=== PATIENT | male | born 1955 | race Caucasian/White ===

== ENCOUNTER → 2018-06-15 | Outpatient (REF) | payer OTHER ==
[2018-06-15 17:23] LABS: ALBUMIN 4.7 GM/DL (3.2-5.2); ALT/SGPT 41 U/L (12-78); BILIRUBIN,TOTAL 0.5 MG/DL (0.2-1.0); BLOOD UREA NITROGEN 21 MG/DL (7-18); CALCIUM LEVEL 9.8 MG/DL (8.8-10.2); CARBON DIOXIDE LEVEL 29 MEQ/L (21-32); CHLORIDE LEVEL 105 MEQ/L (98-107); CHOLESTEROL LEVEL 192 MG/DL (<200); CREATININE FOR GFR 1.24 MG/DL (0.70-1.30); GLOMERULAR FILTRATION RATE > 60.0 (>49); GLUCOSE, FASTING 112 MG/DL (70-100); HDL CHOLESTEROL 48 MG/DL (>40); LDL CHOLESTEROL 104 MG/DL (<100); NON-HDL-C 144 MG/DL; POTASSIUM SERUM 4.8 MEQ/L (3.5-5.1); SODIUM LEVEL 141 MEQ/L (136-145); TOTAL PROTEIN 7.6 GM/DL (6.4-8.2); TRIGLYCERIDES LEVEL 199 MG/DL (<150)
== END ==
LOC: M SFHCCLAY 09:45
PROVIDERS: ATTEND Family Medicine
DX: I10 Essential (primary) hypertension (principal); E78.2 Mixed hyperlipidemia

== ENCOUNTER → 2019-10-31 | Outpatient (CLI) | payer OTHER ==
[~2019-10-31] MED LIST: ATOR40TA75 PO; CHLO25TA PO; LISI-538 PO; MAPA500C PO; MELA5TAB21 PO; PANT40TA29 PO; TOPR100T PO
== END ==
LOC: M LABSMTC 09:21
PROVIDERS: ATTEND Anesthesiology
DX: Z01.812 Encounter for preprocedural laboratory examination (principal); Z20.828 Contact with and (suspected) exposure to other viral communicable diseases
CPT/HCPCS: C9803; U0003

== ENCOUNTER 2019-11-05 05:58 | Day surgery (SDC) | payer OTHER ==
[~2019-11-05] VITALS: Ht 172.7 cm; Wt 71.7 kg
[2019-11-05] MEDS ORDERED: LIDOCAINE 2% 100MG/5ML SDV (FOR ANES.) As Ordered ONE (06:55)
[2019-11-05] MEDS ORDERED: propofoL 200 MG/20 ML VIAL As Ordered ONE ×2 (06:55→07:42)
[2019-11-05] MEDS ORDERED: NS 1,000 ML IV SCH (07:00)
[2019-11-05] MEDS ORDERED: LR 1,000 ML IV SCH (07:00)
[2019-11-05] MEDS ORDERED: MIDAZOLAM INJ 2MG/2ML VIAL (J2250 PER 1MG) As Ordered ONE (07:33)
[2019-11-05] MEDS ORDERED: ALBUTEROL 6.7GM INHALER **FOR ANES. CART/OMNICELL ONLY As Ordered ONE (08:02)
[2019-11-05 10:35] VITALS: BP 131/79
[2019-11-05] MEDS ORDERED: LIQUID POLIBAR PLUS 105% w/v 1900ML BTL As Ordered ONE (10:36)
--- NOTE | 2019-11-25 09:22 | REP ---
BARIUM ENEMA SINGLE CONTRAST The procedure was performed under the direct supervision of Dr. Mueller. The images were reviewed with Dr. Mueller. FINDINGS: The entomology professor film shows no organomegaly or pathological masses. The intestinal gas pattern is nonspecific. There is a colostomy overlying the left abdomen. A 14-[place] Trejo catheter was inserted into the stomach with some difficulty. The contrast did not readily fill the colon. Gentle pressure had to be applied to the tubing to advance the contrast. Only a small amount of contrast was able to be instilled. Images demonstrate marked mucosal irregularity and narrowing. There is opacification of a small segment of colon near the ostomy. Despite multiple attempts, the remainder of the colon was unable to be filled. IMPRESSION: A 14-[place] Island[place] Trejo catheter was inserted with some difficulty. Only a small amount of contrast was able to be instilled. Images demonstrate marked mucosal irregularity and narrowing. There is opacification of a small segment of colon near the ostomy. Despite multiple attempts, no more contrast could be instilled into the colon. 1.3 minutes of fluoroscopy time was utilized for this procedure. PATRIZIA
--- NOTE | 2019-12-25 21:43 | ROOR ---
Patient Name: Bijan Jaramillo Procedure Date: 11/05/2019 7:17 AM Date of : 1955 Age: 63 Room: [facility] Gender: Male Note Status: Finalized Procedure: Colonoscopy Indications: Post surgical follow-up, Preoperative assessment, Patient had emergency sigmoid colectomy with colostomy in May for perforation. Now being evaluated for colostomy takedown. Providers: Alden Austin MD Referring MD: VERONICA COTTON DO Requesting Provider: Medicines: Monitored Anesthesia Care Complications: No immediate complications. Procedure: Pre-Anesthesia Assessment: - Prior to the procedure, a History and Physical was performed, and patient medications and allergies were reviewed. The patient is competent. The risks and benefits of the procedure and the sedation options and risks were discussed with the patient. All questions were answered and informed consent was obtained. Patient identification and proposed procedure were verified by the physician, the nurse and the anesthesiologist in the procedure room. Mental Status Examination: alert and oriented. Airway Examination: normal oropharyngeal airway and neck mobility. ASA Grade Assessment: II - A patient with mild systemic disease. After reviewing the risks and benefits, the patient was deemed in satisfactory condition to undergo the procedure. The anesthesia plan was to use monitored anesthesia care (MAC). Immediately prior to administration of medications, the patient was re-assessed for adequacy to receive sedatives. The heart rate, respiratory rate, oxygen saturations, blood pressure, adequacy of pulmonary ventilation, and response to care were monitored throughout the procedure. The physical status of the patient was re-assessed after the procedure. The Colonoscope was introduced through the anus and advanced to the sigmoid colon for evaluation. This was the intended extent. The colostomy was markedly stenotic and it was impossible to insert the scope so this portion of the scope was aborted. Findings: The perianal and digital rectal examinations were normal. A small amount of stool was found in the rectum, making visualization difficult. Lavage of the area was performed using a moderate amount of sterile water, resulting in clearance with good visualization. A benign obstructing stenosis was found at 25 cm proximal to the anus and was non-traversed. This marked the closed end of his rectosigmoid. There was evidence of a markedly strictured end colostomy in the descending colon. This was characterized by severe stenosis. This portion of the colonoscopy was aborted. Impression: - The procedure was aborted due to abnormal anatomy. - Stool in the rectum. - Stricture at 25 cm proximal to the anus. 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 - No specimens collected. Recommendation: - Discharge patient to home. - Resume previous diet. - Perform a single contrast barium enema at appointment to be scheduled. Alden Austin MD Alden Austin MD 12/25/2019 9:42:21 PM Electronically signed by Alden Austin MD Number of Addenda: 0 Note Initiated On: 11/05/2019 7:17 AM Estimated Blood Loss: Estimated blood loss: none.
== END 2019-11-05 10:39 | disposition home or self-care (01) ==
LOC: M OPP 05:58
PROVIDERS: ATTEND Surgery
DX: Z01.818 Encounter for other preprocedural examination (principal); K56.699 Other intestinal obstruction unspecified as to partial versus complete obstruction; Z09 Encounter for follow-up examination after completed treatment for conditions other than malignant neoplasm; Z53.8 Procedure and treatment not carried out for other reasons
CPT/HCPCS: 45378; 74270; J2250

== ENCOUNTER → 2019-12-01 | Outpatient (CLI) | payer OTHER ==
[~2019-12-01] MED LIST changes: +GASTROGRAFIN SOLUTION 30ML (Q9963) As Ordered ONE; +ISOVUE-370 76% 100ML VIAL As Ordered ONE
--- NOTE | 2019-12-06 09:16 | REP ---
CT ABDOMEN AND PELVIS WITH INTRAVENOUS (IV) AND ORAL CONTRAST HISTORY: Colostomy malfunction. Large intestinal diverticulitis with perforation and abscess without bleeding. CT CONTRAST DOSE: 100 mL of intravenous Isovue-[address] STUDY: None. 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 The lung bases are clear on axial CT images except for some linear plate-like atelectasis and/or fibrosis in the lingula at the left lung base. No pleural effusion is seen. The liver and the spleen are normal in size and homogeneous in texture. No abnormality noted in the gallbladder or pancreas. Normal adrenal glands are seen bilaterally. There is a cyst in the upper pole of the left kidney, which measures 13 mm in diameter. There is another cyst in the anterior cortex of the left mid kidney measuring 11 mm and a third lower pole cyst is seen in the left kidney measuring 21 mm. There is mild cortical scarring in the right kidney. No hydronephrosis is seen. No retroperitoneal mass or adenopathy is observed. The stomach is somewhat distended with ingested contrast. The small bowel loops are unremarkable in caliber. Left lower quadrant enterostomy is seen. There is mural thickening in the descending colon just above the colostomy, question enterocolitis. There are dystrophic calcifications just deep to the abdominal wall in the left lower quadrant at the level of the enterostomy. These may be dystrophic. No colonic distention is seen. No free fluid is noted. A normal appendix is seen. Urinary bladder, prostate, and seminal vesicles are unremarkable. IMPRESSION: Mural thickening in the distal descending colon just above the left lower quadrant colostomy question enterocolitis. There is an area of dystrophic calcification in the left lower quadrant deep to the colostomy site. No evidence of obstruction. Small left renal cyst. MTDD
== END ==
LOC: M RAD 14:23
PROVIDERS: ATTEND Surgery
DX: K57.92 Diverticulitis of intestine, part unspecified, without perforation or abscess without bleeding (principal); K94.03 Colostomy malfunction
CPT/HCPCS: 74177; Q9963; Q9967

== ENCOUNTER → 2019-12-27 | Outpatient (REF) | payer OTHER ==
[~2019-12-27] MED LIST changes: -GASTROGRAFIN SOLUTION 30ML (Q9963) As Ordered ONE; -ISOVUE-370 76% 100ML VIAL As Ordered ONE
[2019-12-27 17:11] LABS: BASO % 0.2 % (0.0-1.0); EOS % 0.1 % (0.0-3.0); HEMATOCRIT 45.1 % (42.0-52.0); HEMOGLOBIN 14.2 g/dl (13.5-17.5); LYMPH # 2.9 10^3/uL (1.5-5.0); LYMPH % 29.6 % (24.0-44.0); MEAN CORPUSCULAR HEMOGLOBIN 25.8 pg (27.0-33.0); MEAN CORPUSCULAR HGB CONC 31.5 g/dl (32.0-36.5); MONO # 0.4 10^3/uL (0.0-0.8); MONO % 4.3 % (0.0-5.0); NEUTROPHILS # 6.3 10^3/uL (1.5-8.5); NEUTROPHILS % 64.9 % (36.0-66.0); PLATELET COUNT, AUTOMATED 344 10^3/uL (150-450); WHITE BLOOD COUNT 9.7 10^3/uL (4.0-10.0)
[2019-12-27 18:25] LABS: ALBUMIN 4.6 GM/DL (3.2-5.2); ALT/SGPT 24 U/L (12-78); BILIRUBIN,TOTAL 0.5 MG/DL (0.2-1.0); BLOOD UREA NITROGEN 13 MG/DL (7-18); CALCIUM LEVEL 9.7 MG/DL (8.8-10.2); CARBON DIOXIDE LEVEL 31 MEQ/L (21-32); CHLORIDE LEVEL 97 MEQ/L (98-107); CHOLESTEROL LEVEL 137 MG/DL (<200); CHOLESTEROL RISK RATIO 2.584 (<5); CREATININE FOR GFR 1.09 MG/DL (0.70-1.30); GLOMERULAR FILTRATION RATE > 60.0 (>49); GLUCOSE, FASTING 110 MG/DL (70-100); HDL CHOLESTEROL 53 MG/DL (>40); LDL CHOLESTEROL 58 MG/DL (<100); MAGNESIUM LEVEL 1.8 MG/DL (1.8-2.4); NON-HDL-C 84 MG/DL; POTASSIUM SERUM 4.2 MEQ/L (3.5-5.1); SODIUM LEVEL 133 MEQ/L (136-145); THYROID STIMULATING HORMONE 0.889 uIU/ML (0.358-3.740); TOTAL PROTEIN 7.9 GM/DL (6.4-8.2); TRIGLYCERIDES LEVEL 130 MG/DL (<150)
== END ==
LOC: M SFHCCLAY 10:01
PROVIDERS: ATTEND Family Medicine
DX: I10 Essential (primary) hypertension (principal); E78.2 Mixed hyperlipidemia; K21.9 Gastro-esophageal reflux disease without esophagitis; R63.4 Abnormal weight loss

== ENCOUNTER → 2020-01-22 | Outpatient (CLI) | payer OTHER ==
[~2020-01-22] MED LIST changes: +OXYC-517 PO
== END ==
LOC: M LABSMTC 09:26
PROVIDERS: ATTEND Surgery
DX: Z01.818 Encounter for other preprocedural examination (principal)

== ENCOUNTER 2020-01-25 09:05 | Inpatient (IN) | payer OTHER ==
--- NOTE | 2020-01-24 20:16 | HPE ---
"HISTORY AND PHYSICAL DATE OF ADMISSION: 01/25/2020 ADMITTING DIAGNOSIS: Colostomy status post sigmoid colon perforation. HISTORY OF PRESENT ILLNESS: The patient is a 64-year-old man who on 05/26/2019 underwent surgery at [facility] for a sigmoid colon perforation. He had initially presented at [facility] with abdominal pain and was transferred to [facility]. He underwent surgery with a sigmoid resection and an end descending colostomy. He was apparently in shock at the time of the surgery requiring pressor support. He was hospitalized for 9 days. He ultimately was discharged home. He apparently did well and was subsequently referred to me for consideration of colostomy closure. I first saw him on 10/25/2019. He was scheduled for a colonoscopy to evaluate his rectal stump and remaining colon. At the colonoscopy, it was possible to examine the rectum and he was found to have approximately 25 cm of rectosigmoid. Attempts to intubate his colostomy revealed that he had a marked stricture at the end of his colostomy and it was impossible to advance the scope. He was scheduled for a barium enema and in the x-ray department it was possible for the radiologist to insert a small catheter but only a minimal amount of contrast could be injected. He reports that the ostomy is functioning adequately though he does have some crampy pains before passage of material. Because of the stricture, he underwent a CT scan of the abdomen and pelvis on 12/01/2019. This revealed some mural thickening in the distal descending colon just above the colostomy. There was also some dystrophic calcifications in the left lower quadrant deep to the colostomy site. On my review, I thought it might be that these reported calcifications represented some residual contrast from the attempted barium enema. I did not think that the findings suggested cancer. He is now being admitted on the morning of 01/25/2020 to undergo a robotic assisted laparoscopic takedown of his colostomy with a coloproctostomy. He is to perform a full mechanical and antibiotic bowel preparation at home on 01/24/2020 using Suprep with Neomycin and Flagyl. ALLERGIES: The patient reports no known drug allergies. MEDICATIONS: Include: - atorvastatin 40 mg by mouth daily - chlorthalidone 25 mg by mouth daily - lisinopril 20 mg by mouth daily - melatonin 10 mg one tablet by mouth at bedtime - metoprolol succinate ER 100 mg by mouth daily - Protonix 40 mg by mouth daily - Tylenol as needed for pain MEDICAL HISTORY: Significant for high cholesterol. He has a history of hypertension. He has gastroesophageal reflux disease. He reports that he has had some borderline blood sugars but has not been diagnosed as diabetic.| SURGICAL HISTORY: Significant for surgery on his hand in 2006 and 2007. He had a transurethral resection of a bladder tumor in 2013 for bladder cancer. He has had several colonoscopies in the past but the most recent had been 10 years ago. On 05/26/2019, he underwent a laparotomy with a sigmoid resection and end colostomy. FAMILY HISTORY: Patient's father is from heart disease and his mother is with diabetes. SOCIAL HISTORY: Patient is . He denies any smoking or alcohol use. REVIEW OF SYSTEMS: Reviews no history of fevers or chills and his weight has been stable. He denies any history of seizures or stroke. He has no chest pain or palpitations. He denies any chronic cough, wheezing, or sputum production. He has had no rectal bleeding. There is no family history of colon cancer. He denies any dysuria or hematuria currently. There are no significant bone or joint issues and he has no history of deep venous thrombosis (DVT) or pulmonary embolus. PHYSICAL EXAMINATION: Reveals a pleasant man in no acute distress. At his most recent office visit, his height was 68 inches with a weight of 73 kg, giving him a body mass index (BMI) of 24. He is alert, oriented, and cooperative. Skin is warm and dry. Sclerae are anicteric. Mucous membranes are moist. The neck is supple without mass or bruit. Heart exam shows a regular rate and rhythm. Lungs are clear to auscultation bilaterally. The abdomen is thin and flat. He has a well-healed midline abdominal scar. The ostomy is present on the left at about the mid abdomen. There does appear to be a stenotic or scarred area at the end of the colostomy. Digital rectal exam was performed at the time of his colonoscopy and was not repeated. Extremities are without edema and he has intact peripheral pulses. IMPRESSION: 1. End descending colostomy status post sigmoid resection for perforation. 2. Hypertension. 3. Hypercholesterolemia. 4. Gastroesophageal reflux disease. 5. Borderline blood sugars. PLAN: The patient is being admitted on 01/25/2020 to undergo a robotic assisted takedown of his colostomy and coloproctostomy. I anticipate that we may encounter some significant intraabdominal scarring because of his diffuse peritonitis at the time of his resection. I anticipate that we will need to resect a portion of the end of the sigmoid. Given the finding of a stenosis at the end of the stoma with thickening by CT scan, I suspect we will also need to resect a portion of the descending colon. This means we will also need to mobilize his splenic flexure to try to achieve adequate length for an anastomosis. The patient has been counseled regarding the surgery. Risks of the procedure include but are not limited to bleeding, infection, scarring, adverse drug reaction, need for further surgery, injury of internal organ, anastomotic leak, and hernia. He desires to proceed with the surgery as I have outlined it. He will perform his bowel prep at home the day before surgery. He will receive intravenous antibiotics on the morning of the procedure. I have advised him to anticipate an approximately 3 day hospital stay if all goes well. PATRIZIA"
[~2020-01-25] VITALS: Ht 172.7 cm; Wt 70.8 kg
[~2020-01-25 09:05] MED LIST changes: +ALVIMOPAN 12 MG CAPSULE (ENTEREG) PO ONE; +HYDROmorphone HCL 2 MG/ML 1ML VIAL (J1170) As Ordered ONE; +LIDOCAINE 2% 100MG/5ML SDV (FOR ANES.) As Ordered ONE; +LR 1,000 ML IV ONE; +MIDAZOLAM INJ 2MG/2ML VIAL (J2250 PER 1MG) As Ordered ONE; +ONDANSETRON 4MG/2ML VIAL As Ordered ONE; -OXYC-517 PO; +ROCURONIUM BROMIDE 50 MG/5 ML VIAL As Ordered ONE; +SUGAMMADEX SODIUM 500 MG/5 ML VIAL (BRIDION) As Ordered ONE; +cefoTEtan DISODIUM 2 GM in D5W MINI-BAG PLUS 50 ML IV ONE; +dexameTHASONE 4 MG/ML 1ML VIAL (J1100 PER 1MG) As Ordered ONE; +fentaNYL 100 MCG/2 ML INJECTION (J3010) As Ordered ONE; +propofoL 200 MG/20 ML VIAL As Ordered ONE
[2020-01-25] MEDS ORDERED: BUPIVACAINE HCL 0.25% 30ML VIAL As Ordered ONE (09:32)
[2020-01-25] MEDS ORDERED: cefoTEtan DISODIUM 2 GM in D5W MINI-BAG PLUS 50 ML IV ONE ×2 (10:00→22:30)
[2020-01-25] MEDS ORDERED: ACETAMINOPHEN 1000MG 100ML IV BTL (OFIRMEV) (J0131 PER 10MG) As Ordered ONE (10:38)
[2020-01-25] MEDS ORDERED: ePHEDrine SULFATE 25 MG/5 ML(5MG/ML) SYRINGE As Ordered ONE ×2 (10:39→16:08)
[2020-01-25] MEDS ORDERED: ROCURONIUM BROMIDE 50 MG/5 ML VIAL As Ordered ONE ×4 (10:44→15:16)
[2020-01-25] MEDS ORDERED: fentaNYL 100 MCG/2 ML INJECTION (J3010) As Ordered ONE (16:17)
[2020-01-25] MEDS ORDERED: propofoL 200 MG/20 ML VIAL As Ordered ONE (16:17)
[2020-01-25] MEDS ORDERED: ONDANSETRON 4MG/2ML VIAL IV PRN ×2 (17:00→18:45)
[2020-01-25] MEDS ORDERED: oxyCODONE 5MG TAB PO PRN (17:00)
[2020-01-25] MEDS ORDERED: LR 1,000 ML IV SCH (17:00)
[2020-01-25] MEDS: fentaNYL 100 MCG/2 ML INJECTION (J3010) IV PRN ×3 (17:04→17:24)
[2020-01-25 18:00] VITALS: BP 142/78
[2020-01-25 18:35] VITALS: BP 138/76
[2020-01-25] MEDS ORDERED: ACETAMINOPHEN TAB 650MG DOSE (2X325MG) PO PRN (18:45)
[2020-01-25] MEDS ORDERED: METOCLOPRAMIDE INJ 10MG/2ML VIAL (J2765 PER 1) IV PRN (18:45)
[2020-01-25] MEDS ORDERED: MORPHINE 2 MG/ML 1ML VIAL (J2270) IV PRN (18:45)
[2020-01-25 19:30] VITALS: BP 134/86
[2020-01-25] MEDS: KETOROLAC 30 MG/ML 1ML VIAL IV SCH (19:51)
[2020-01-25 20:30] VITALS: BP 135/83
[2020-01-25] MEDS: LR 1,000 ML IV SCH ×2 (20:45→22:50)
[2020-01-25 22:30] VITALS: BP 133/75
[2020-01-26 02:00] VITALS: BP 133/77
[2020-01-26] MEDS: KETOROLAC 30 MG/ML 1ML VIAL IV SCH ×4 (02:11→21:05)
[2020-01-26 06:00] VITALS: BP 134/77
[2020-01-26] MEDS: oxyCODONE 5MG TAB PO PRN ×3 (06:20→16:35)
[2020-01-26] MEDS: lisinopriL 20 MG TAB PO SCH (07:52)
[2020-01-26] MEDS: ATORVASTATIN 20 MG TAB PO SCH (07:52)
[2020-01-26] MEDS: METOPROLOL SUCC (TopROL XL) 100MG *XL* TAB PO SCH (07:53)
[2020-01-26] MEDS: CHLORTHALIDONE 25 MG TAB PO SCH (07:53)
[2020-01-26] MEDS: ENOXAPARIN 40MG/0.4ML SYRINGE (J1650 PER 10MG) SC SCH (07:53)
[2020-01-26] MEDS: PANTOPRAZOLE 40MG TAB (PROTONIX) PO SCH (07:53)
[2020-01-26 08:14] LABS: BASO % 0.2 % (0.0-1.0); EOS % 0.1 % (0.0-3.0); HEMATOCRIT 38.9 % (42.0-52.0); HEMOGLOBIN 12.2 g/dl (13.5-17.5); LYMPH # 2.5 10^3/uL (1.5-5.0); LYMPH % 15.9 % (24.0-44.0); MEAN CORPUSCULAR HEMOGLOBIN 26.6 pg (27.0-33.0); MEAN CORPUSCULAR HGB CONC 31.4 g/dl (32.0-36.5); MEAN CORPUSCULAR VOLUME 84.7 fl (80.0-96.0); MONO # 0.7 10^3/uL (0.0-0.8); MONO % 4.2 % (0.0-5.0); NEUTROPHILS # 12.7 10^3/uL (1.5-8.5); PLATELET COUNT, AUTOMATED 277 10^3/uL (150-450); RED BLOOD COUNT 4.59 10^6/uL (4.30-6.10)
[2020-01-26 08:30] LABS: CALCIUM LEVEL 8.5 MG/DL (8.8-10.2); CREATININE FOR GFR 1.37 MG/DL (0.70-1.30); GLOMERULAR FILTRATION RATE 55.7 (>49); POTASSIUM SERUM 3.6 MEQ/L (3.5-5.1)
[2020-01-26 10:11] VITALS: BP 109/65
[2020-01-26 15:09] VITALS: BP 131/83
[2020-01-26 20:00] VITALS: BP 120/71
[2020-01-27] MEDS: oxyCODONE 5MG TAB PO PRN ×6 (00:37→23:06)
[2020-01-27] MEDS: KETOROLAC 30 MG/ML 1ML VIAL IV SCH ×2 (02:17→08:00)
[2020-01-27 06:00] VITALS: BP 125/78
[2020-01-27] MEDS: CHLORTHALIDONE 25 MG TAB PO SCH (08:33)
[2020-01-27] MEDS: PANTOPRAZOLE 40MG TAB (PROTONIX) PO SCH (08:33)
[2020-01-27] MEDS: ATORVASTATIN 20 MG TAB PO SCH (08:33)
[2020-01-27] MEDS: ENOXAPARIN 40MG/0.4ML SYRINGE (J1650 PER 10MG) SC SCH (08:33)
[2020-01-27] MEDS: lisinopriL 20 MG TAB PO SCH (08:33)
[2020-01-27] MEDS: METOPROLOL SUCC (TopROL XL) 100MG *XL* TAB PO SCH (08:33)
[2020-01-27] MEDS ORDERED: IBUPROFEN 600MG TAB PO PRN (09:00)
[2020-01-27 10:00] VITALS: BP 110/63
--- NOTE | 2020-01-27 11:06 | RO ---
OPERATIVE NOTE DATE OF OPERATION: 01/25/2020 PREOPERATIVE DIAGNOSIS: Colostomy status post sigmoid resection for perforation, for closure POSTOPERATIVE DIAGNOSES: Colostomy for closure, colostomy stenosis with peristomal inflammation, extensive adhesions, and midline incisional hernia. PROCEDURES PERFORMED: Robotic-assisted rectosigmoid resection, extensive lysis of adhesions, take down of colostomy with mobilization of splenic flexure, and coloproctostomy. Flexible sigmoidoscopy for inspection of anastomosis. SURGEON: Alden Austin MD RECAPPER: Earl Garcia MD whose assistance was essential for performing the colorectal anastomosis. SECOND SALON SUPERVISOR: HARINDER Arrington. ANESTHESIA: General. INDICATIONS FOR PROCEDURE: The patient is a 64-year-old man who, on May 26, 2019, had undergone surgery in [place] for a perforated sigmoid diverticulum with diffuse peritonitis. He had a sigmoid colectomy and an end colostomy in the left mid abdomen. He was recently referred to me to consider closure of his colostomy. He was found to have a significant stenosis of his ostomy which precluded endoscopic exam. The patient is now for robotic-assisted take down of his colostomy with resection of any residual sigmoid and coloproctostomy. OPERATIVE PROCEDURE: The patient was brought to the operating room and placed on the table in a supine position. He was placed under general endotracheal anesthesia. TEDs and sequentials were utilized. Trejo catheter was placed. He was moved into a low lithotomy position with the lower extremities in padded leg holders. His ostomy appliance was removed and he was noted to have a very small opening without any exposed mucosa at his stoma. This was perhaps 6-8 mm maximally and very irregular. This area was closed with two sutures of 2-0 silk. The abdomen was then prepped and draped in sterile fashion. A small OpSite was placed over the ostomy. 0.25% Marcaine was infiltrated at the trocar sites as needed. A short transverse incision was made in the left upper quadrant and a Veress needle was inserted. After a positive hanging drop test, the abdomen was insufflated but pressures micki rapidly and the Veress needle was removed. I then moved to place a trocar high in the right upper quadrant. Again, after local anesthesia, a short incision was made and the Veress needle was inserted. After a positive hanging drop test, the abdomen was inflated with carbon dioxide gas without difficulty. A 5-mm port was placed over a 5-mm camera and advanced through the abdominal wall. Examination showed some adhesions of the omentum to the anterior abdominal wall with several veils of tissue obscuring the view to the left side of the abdomen. An 8-mm port was placed in the right mid abdomen. The scope was moved to the site and inspection showed what appeared to be some arterial bleeding running down the side of the abdomen from the area of the port site. I elected to expand the port site to ensure that bleeding was controlled. Therefore, the port was removed and the incision was extended to approximately 2.5 to 3 cm. the fascia was opened and the muscles exposed. Several small bleeding points were identified. The posterior fascia was identified and clearly the bleeding had been stopped. A suture was placed to narrow the opening and I elected to place a 12-mm port through this site. This was accomplished without difficulty and the abdomen was re-inflated. An 8-mm port was placed in the right upper quadrant. Cauterizing scissors were used to take down adhesions to the anterior abdominal wall. There were fairly extensive attachments of the omentum extending down along the midline. As the omentum was freed, it was clear that he had a midline incisional hernia involving particularly the inferior portion of his scar. A second 8-mm port was placed in the upper abdomen slightly to the left of the midline and a fourth port, also 8 mm, was placed through the initial incision in the left upper quadrant which was lateral to the stoma. The patient cart of the da Tomeka Xi robot was then brought into position and docked to the camera port. Targeting took place in the low left lower quadrant and the additional arms were docked to the existing ports. The 5-mm port in the right upper quadrant was continued as an environmental emergencies assistant port. I then moved to the control console to proceed with the surgery. Initially, the dissection of the adhesions to the anterior abdominal wall continued until these had been completely freed. There were some adhesions obscuring the area of the stoma at first and these were also lysed. As the stoma was identified, it was clear that the colon came up to the stoma from the lateral side but there were two loops of small bowel adherent densely to the area of the stoma. One of these was slightly more superior and medial and seemed to be densely adherent over a very small area, perhaps a square centimeter. The second loop came up more inferiorly and was adherent over a much larger area. There did seem to be some inflammatory adhesions between these loops and the tissues of the colon just at and below the exit through the posterior fascia. Attention was then directed to the pelvis. The patient was tilted to a steep Trendelenburg position. In the pelvis, the end of the sigmoid stump was attached by a rapp suture to the anterior abdominal wall with some adhesions and this was cut to allow the mobilization of the sigmoid. The sigmoid remnant was quite small. Using the SynchroSeal device, the mesentery of the remaining sigmoid was carefully divided working down across the sacral promontory. Dissection continued for perhaps 6-7 cm until I was certain that we had reached the rectum. The mesorectum in this area was dissected free to expose the wall of the upper rectum. The rectum was stapled with two loads of a 45-mm endoscopic robotic stapler with green loads. A small amount of the fibrofatty tissue of the mesorectum was dissected on the posterior side of the staple line to ensure that this would not interfere with an anastomosis. The small portion of sigmoid colon was placed in the pelvis for later retrieval. Attention was then turned to the stoma. I elected to transect the small section of the more superior loop of small bowel using a load of the endoscopic stapler. I was able to place this with a blue load very close to the anterior abdominal wall and transected the loop of small bowel at this point. This was right at the apex of the loop and appeared to be quite stretched out, so there did not appear to be any impingement on the lumen after firing the stapler. The second loop was then further mobilized by carefully developing a plane of dissection between the small bowel and the adjacent colostomy. A small amount of debris was released from the space between the two structures and it was possible then to break the small bowel free. There appeared to be a small patch of granulation tissue contained in this area consistent with the small bowel walling off a small abscess in this area. The piece of bowel was carefully inspected and irrigated, and there did not appear to be any sign of perforation. I then elected to proceed with mobilization of the stoma from outside. The da Tomeka was undocked after removal of the instruments. The patient cart was moved aside and I moved to the patient's side. At this point, an Endopouch was inserted and the fragment of sigmoid colon was grasped with a hand-held retractor and placed into the Endopouch for removal. A transverse elliptical incision was made at the stoma site and the cautery was used to dissect through the subcutaneous tissues to free the end of the colon. There were very dense adhesions to the end of the colon. Once the posterior fascia had been entered, it was easier to continue the dissection, taking as little tissue from the abdominal wall as possible. Once the bowel was mobilized, it was clear that the descending colon proximal to the anastomosis was quite thickened with hypertrophy of the muscles consistent with his stenotic ostomy. The end of the stoma was excised. Hemostasis was ensured. The vascularity appeared excellent. The diameter of the bowel was such that it would easily admit a 29-mm stapler. A pursestring suture of 2-0 Prolene was placed and tied down around the post of the anvil. A second pursestring was placed to tuck in several small folds in the end of the colon. A small amount of surrounding fibrofatty tissue was excised to prevent interference with the anastomosis. This was then irrigated and then reduced into the abdomen. The specimen retrieval bag was removed with the portion of the rectosigmoid. The posterior fascia of the rectus sheath was closed with a running suture of 1-0 Vicryl. The anterior sheath was then closed with interrupted simple sutures of #1 Vicryl. The surgical team had changed gloves and changed to some clean instruments before closing this incision. The abdomen was then re-inflated. At this point, the robot was re-docked to focus the instruments into the left upper quadrant for mobilization of the transverse colon and splenic flexure. The instruments were reinserted and I moved again to the control console. The splenic flexure was then completely mobilized. The greater omentum was elevated off of the transverse colon from about the midline all the way to the spleen. The freeing of the proximal descending colon was carried up laterally and then around the superior aspect of the splenic flexure and any attachments in the left upper quadrant were divided with care to preserve the spleen. Some additional mobilization of the more distal descending colon was performed and aided by elevating the end of the colon superiorly to put some gentle stretch on the distal tissues. Care was taken to preserve the inferior mesenteric vessels which coursed in the edge of the supporting structures to the descending colon. After completing this dissection, it appeared that there was adequate length for an anastomosis. At this point, attention was turned and the robot was redirected toward the pelvis. Graspers were inserted. With the patient in a Trendelenburg position, Dr. Garcia went down to the perineum and inserted the 29-mm EEA stapler after gently dilating the rectum with a sizer. The stapler was directed up to the end of the rectal stump. The stapler would not quite reach the very end so it was directed toward the anterior wall of the rectum just below the staple line. The post of the stapler was advanced and the anvil was attached, and Dr. Garcia then proceeded to close the stapler and fire it. This was removed. Inspection revealed two excellent donuts of tissue from the stapler. The descending colon was gently clamped and the pelvis was filled with saline. Dr. Garcia inserted a colonoscope into the rectum to inspect the anastomosis, which appeared to be excellent with no gaps and no bleeding. He insufflated air and there was no evidence of leakage within the pelvis. The pelvic fluid was then removed. The patient was gradually returned to a flat position. The abdomen was inspected for bleeding. A small amount of previously spilled blood was irrigated and suctioned, and there was no evidence of any ongoing bleeding. There did not appear to be undue tension on the colon. The abdomen was then deflated and the trocars were removed. The skin edges at the stoma site were freed from some underlying scarring of the subcutaneous tissues and approximated with several buried sutures of 2-0 Vicryl. The skin incision was then closed with skin yamilex. The fascia in the right lower quadrant 12-mm site was closed from outside with interrupted sutures of 0 Vicryl and the skin incisions were then all closed with buried 4-0 Vicryl and Steri-Strips. The rectosigmoid was sent as one specimen and the stoma as a second specimen. I elected to remove the Trejo catheter at the conclusion of the procedure. The patient was then awakened in the operating room, extubated, and moved to the recovery room in a stable condition. PATRIZIA
--- NOTE | 2020-01-27 12:33 | IPN ---
PROGRESS NOTE DATE: 01/27/2020 HISTORY: Patient is post-op day number 2 from a robotic assisted laparoscopic take out of his colostomy with coloproctostomy. He has done very well since surgery. He has tolerated a regular diet. He did have some crampy and gas pains yesterday, but these are improved today. He has had no nausea or vomiting. He has been passing some flatus, but has not yet had a bowel movement. PHYSICAL EXAMINATION: Vital signs show that he has been afebrile over the past 24 hours. Pulse is in the 60s and low 70s and his blood pressure is good. Intake and output show that yesterday he had 2700 in with 1100 mL of urine output recorded. Patient is sitting up in a chair when I came to see him. He has been ambulating in the hallway. Skin: Warm and dry. HEENT: Sclerae are anicteric. Heart and lung exams: Unremarkable. Abdomen: Thin and flat and he has active bowel sounds. His dressings are removed and his incisions are all clean and dry. IMPRESSION: Patient is doing very well 2 days post-op from surgery. PLAN: He was advised that he should be up ambulating today as desired. He can take his regular diet as tolerated. I have stopped his routine Toradol and offered some ibuprofen instead for moderate pain. I advised him that he should anticipate some bowel function probably today and that he can likely go home in the morning. One of my partners will be covering for me tomorrow as I am taking the day off and I would expect him to follow up with me a week from his discharge date for removal of his surgical yamilex at the ostomy site. PATRIZIA
--- NOTE | 2020-01-27 12:33 | IPN ---
PROGRESS NOTE DATE: 01/26/2020 HISTORY: Patient is post-op day number 1 from a robotically assisted laparoscopic take down of his colostomy with mobilization of the splenic flexure and rectosigmoid resection with coloproctostomy. He has generally done well since surgery. He has been taking some clear liquids and reports he had voided without difficulty. He has had a small amount of flatus. PHYSICAL EXAMINATION: Vital signs show that he has been afebrile since surgery. His pulse is in the 60s and 70s and his blood pressure is excellent. Intake and output show that yesterday he had 3000 in with 700 recorded out. Patient is alert and oriented. He appears fairly comfortable. Skin: Warm and dry. Heart: Regular rhythm. Lungs: Clear. Abdomen: Flat and he has active bowel sounds. His dressings are dry. LABORATORY STUDIES: White count 16,000 with 79% neutrophils and 16% lymphocytes, hemoglobin 12 with hematocrit 39 and platelet count is 277,000. Chemistry profile shows normal electrolytes; BUN 15, creatinine 1.4 and a glucose of 124. IMPRESSION: Patient is doing very well post-op day 1 from his colostomy take down with rectosigmoid resection and coloproctostomy. PLAN: I will saline lock the patient's I.V. at this point as he appears to be taking liquids well. I will advance him to a regular diet and he was advised that he can pick and choose as he so desires. We will remove one of his 2 I.V's. He is encouraged to be up ambulating. I advised him that if everything continues to go well he should be ready for discharge on or about Friday the 27 of January. PATRIZIA
[2020-01-27 14:42] VITALS: BP 111/65
[2020-01-27 22:00] VITALS: BP 114/64
[2020-01-27] MEDS ORDERED: OXYC-517 PO (22:46)
[2020-01-28 02:00] VITALS: BP 143/90
[2020-01-28] MEDS: oxyCODONE 5MG TAB PO PRN ×3 (04:15→12:34)
[2020-01-28 06:00] VITALS: BP 148/68
[2020-01-28 06:45] LABS: BASO % 0.4 % (0.0-1.0); EOS # 0.2 10^3/uL (0.0-0.5); EOS % 2.2 % (0.0-3.0); HEMATOCRIT 32.7 % (42.0-52.0); HEMOGLOBIN 10.5 g/dl (13.5-17.5); LYMPH # 2.3 10^3/uL (1.5-5.0); LYMPH % 27.1 % (24.0-44.0); MEAN CORPUSCULAR HGB CONC 32.1 g/dl (32.0-36.5); MEAN CORPUSCULAR VOLUME 84.1 fl (80.0-96.0); MONO # 0.4 10^3/uL (0.0-0.8); MONO % 4.9 % (0.0-5.0); NEUTROPHILS # 5.5 10^3/uL (1.5-8.5); NEUTROPHILS % 64.9 % (36.0-66.0); PLATELET COUNT, AUTOMATED 215 10^3/uL (150-450); RED BLOOD COUNT 3.89 10^6/uL (4.30-6.10); WHITE BLOOD COUNT 8.5 10^3/uL (4.0-10.0)
[2020-01-28] MEDS: ENOXAPARIN 40MG/0.4ML SYRINGE (J1650 PER 10MG) SC SCH (07:58)
[2020-01-28] MEDS: CHLORTHALIDONE 25 MG TAB PO SCH (07:58)
[2020-01-28 07:59] VITALS: BP 148/68
[2020-01-28] MEDS: lisinopriL 20 MG TAB PO SCH (07:59)
[2020-01-28] MEDS: ATORVASTATIN 20 MG TAB PO SCH (07:59)
[2020-01-28] MEDS: METOPROLOL SUCC (TopROL XL) 100MG *XL* TAB PO SCH (07:59)
[2020-01-28] MEDS: PANTOPRAZOLE 40MG TAB (PROTONIX) PO SCH (07:59)
[2020-01-28 10:00] VITALS: BP 136/80
== END 2020-01-28 12:50 | disposition home or self-care (01) | DRG 221 ==
LOC: M OR 09:05 → M MS5PR 17:59
PROVIDERS: ADMIT Surgery; ATTEND Surgery
PROC: 0DBP4ZZ Excision of Rectum, Percutaneous Endoscopic Approach (ICD-10-PCS; 2020-01-25)
PROC: 0DNM0ZZ Release Descending Colon, Open Approach (ICD-10-PCS; 2020-01-25)
PROC: 8E0W4CZ Robotic Assisted Procedure of Trunk Region, Percutaneous Endoscopic Approach (ICD-10-PCS; 2020-01-25)
PROC: 0DBM4ZZ Excision of Descending Colon, Percutaneous Endoscopic Approach (ICD-10-PCS; 2020-01-25)
PROC: 0DBN4ZZ Excision of Sigmoid Colon, Percutaneous Endoscopic Approach (ICD-10-PCS; principal; 2020-01-25 10:00)
DX: K94.09 Other complications of colostomy (principal); I10 Essential (primary) hypertension; E78.00 Pure hypercholesterolemia, unspecified; K21.9 Gastro-esophageal reflux disease without esophagitis; Y83.1 Surgical operation with implant of artificial internal device as the cause of abnormal reaction of the patient, or of later complication, without mention of misadventure at the time of the procedure; K43.2 Incisional hernia without obstruction or gangrene; Z79.899 Other long term (current) drug therapy

== ENCOUNTER → 2020-06-26 | Outpatient (CLI) | payer OTHER ==
[~2020-06-26] MED LIST changes: -ALVIMOPAN 12 MG CAPSULE (ENTEREG) PO ONE; -HYDROmorphone HCL 2 MG/ML 1ML VIAL (J1170) As Ordered ONE; -LIDOCAINE 2% 100MG/5ML SDV (FOR ANES.) As Ordered ONE; -LISI-538 PO; +LISI20TA33 PO; -LR 1,000 ML IV ONE; -MIDAZOLAM INJ 2MG/2ML VIAL (J2250 PER 1MG) As Ordered ONE; -ONDANSETRON 4MG/2ML VIAL As Ordered ONE; +OXYC-517 PO; -ROCURONIUM BROMIDE 50 MG/5 ML VIAL As Ordered ONE; -SUGAMMADEX SODIUM 500 MG/5 ML VIAL (BRIDION) As Ordered ONE; -cefoTEtan DISODIUM 2 GM in D5W MINI-BAG PLUS 50 ML IV ONE; -dexameTHASONE 4 MG/ML 1ML VIAL (J1100 PER 1MG) As Ordered ONE; -fentaNYL 100 MCG/2 ML INJECTION (J3010) As Ordered ONE; -propofoL 200 MG/20 ML VIAL As Ordered ONE
--- NOTE | 2020-06-26 11:21 | REP ---
INDICATION: RT HIP PAIN COMPARISON: None. TECHNIQUE: AP and frog-lateral views of the right hip FINDINGS: Moderate degenerative changes include increased sclerosis and joint space narrowing with marginal spurring along the acetabulum. No acute fracture or dislocation. No periarticular calcifications or loose bodies identified. IMPRESSION: Moderate degenerative changes <Electronically signed by Bj Qureshi > 06/26/20 1114
== END ==
LOC: M CLY 10:39
PROVIDERS: ATTEND Family Medicine
DX: M25.551 Pain in right hip (principal)

== ENCOUNTER → 2020-09-21 | Outpatient (CLI) | payer OTHER ==
[2020-09-21 16:28] LABS: ALBUMIN 4.8 GM/DL (3.2-5.2); ALT/SGPT 43 U/L (12-78); BILIRUBIN,TOTAL 0.7 MG/DL (0.2-1.0); BLOOD UREA NITROGEN 16 MG/DL (7-18); CALCIUM LEVEL 9.9 MG/DL (8.8-10.2); CARBON DIOXIDE LEVEL 29 MEQ/L (21-32); CHLORIDE LEVEL 92 MEQ/L (98-107); CREATININE FOR GFR 0.91 MG/DL (0.70-1.30); GLOMERULAR FILTRATION RATE > 60.0 (>49); GLUCOSE, FASTING 128 MG/DL (70-100); POTASSIUM SERUM 3.8 MEQ/L (3.5-5.1); RHEUMATOID FACTOR QUANT < 10.0 IU/ML (<15.0); SODIUM LEVEL 129 MEQ/L (136-145); THYROID STIMULATING HORMONE 0.655 uIU/ML (0.358-3.740); THYROXINE (T4) 9.7 UG/DL (4.5-12.0); TOTAL PROTEIN 7.6 GM/DL (6.4-8.2)
[2020-09-21 16:33] LABS: BASO % 0.1 % (0.0-1.0); EOS % 0.1 % (0.0-3.0); HEMATOCRIT 46.1 % (42.0-52.0); HEMOGLOBIN 15.7 g/dl (13.5-17.5); LYMPH # 2.7 10^3/uL (1.5-5.0); LYMPH % 20.1 % (24.0-44.0); MEAN CORPUSCULAR HEMOGLOBIN 30.9 pg (27.0-33.0); MEAN CORPUSCULAR HGB CONC 34.1 g/dl (32.0-36.5); MEAN CORPUSCULAR VOLUME 90.7 fl (80.0-96.0); MONO # 0.4 10^3/uL (0.0-0.8); MONO % 2.6 % (2.0-8.0); NEUTROPHILS # 10.4 10^3/uL (1.5-8.5); NEUTROPHILS % 76.3 % (36.0-66.0); PLATELET COUNT, AUTOMATED 265 10^3/uL (150-450); RED BLOOD COUNT 5.08 10^6/uL (4.30-6.10); WHITE BLOOD COUNT 13.6 10^3/uL (4.0-10.0)
[2020-09-21 16:51] LABS: THYROGLOBULIN ANTIBODY < 15.0 U/ML (<60.0); THYROID PEROXIDASE ANTIBODY 33.1 U/ML (<60.0)
[2020-09-21 16:52] LABS: TOTAL T3 106.7 NG/DL (60.0-181.0)
[2020-09-21 18:44] LABS: ERYTHROCYTE SEDIMENTATION RATE 1 mm/hr (0-20)
== END ==
LOC: M WUC 10:38
PROVIDERS: ATTEND Allergy & Immunology Allergy
DX: L50.1 Idiopathic urticaria (principal)

== ENCOUNTER → 2022-10-14 | Outpatient (CLI) | payer MEDICARE ==
[~2022-10-14] MED LIST changes: +GASTROGRAFIN SOLUTION 30ML As Ordered ONE; +ISOVUE-370 76% 100ML VIAL As Ordered ONE
== END ==
LOC: M RAD 12:26
PROVIDERS: ATTEND Surgery
DX: K43.9 Ventral hernia without obstruction or gangrene (principal)
CPT/HCPCS: 74177; Q9963; Q9967

== ENCOUNTER 2022-11-28 07:21 | Day surgery (SDC) | payer MEDICARE ==
[~2022-11-28] VITALS: Ht 165.1 cm; Wt 77.2 kg
[~2022-11-28 07:21] MED LIST changes: +ACET-1379 PO; +BUSP5TA PO; +CETI10CH PO; -GASTROGRAFIN SOLUTION 30ML As Ordered ONE; -ISOVUE-370 76% 100ML VIAL As Ordered ONE; +LORA-1041 PO; +OMEP-173 PO; +RA M500C PO; +ceFAZolin SOD 2 GM in IV 1 EA IV ONE
[2022-11-28] MEDS ORDERED: LR 1,000 ML IV SCH ×2 (07:50→10:50)
[2022-11-28] MEDS ORDERED: LIDOCAINE 2% 100MG/5ML SDV (FOR ANES.) As Ordered ONE (08:07)
[2022-11-28] MEDS ORDERED: propofoL 200 MG/20 ML VIAL As Ordered ONE (08:07)
[2022-11-28] MEDS ORDERED: ROCURONIUM BROMIDE 50MG/5ML VIAL As Ordered ONE (08:07)
[2022-11-28] MEDS ORDERED: fentaNYL 250 MCG/5 ML INJECTION As Ordered ONE (08:07)
[2022-11-28] MEDS ORDERED: MIDAZOLAM INJ 2MG/2ML VIAL As Ordered ONE (08:08)
[2022-11-28] MEDS ORDERED: PHENYLephrine 500MCG 5ML (100MCG/ML) SYRINGE As Ordered ONE (10:30)
[2022-11-28] MEDS ORDERED: ePHEDrine SULFATE 25 MG/5 ML(5MG/ML) SYRINGE As Ordered ONE (10:30)
[2022-11-28] MEDS ORDERED: ONDANSETRON 4MG 2ML VIAL As Ordered ONE (10:31)
[2022-11-28] MEDS ORDERED: SUGAMMADEX SODIUM 500 MG/5 ML VIAL (BRIDION) As Ordered ONE (10:31)
[2022-11-28] MEDS ORDERED: ACETAMINOPHEN 1000MG 100ML IV BAG As Ordered ONE (10:31)
[2022-11-28] MEDS ORDERED: KETOROLAC 60MG 2ML VIAL As Ordered ONE (10:31)
[2022-11-28] MEDS ORDERED: HYDROMORPHONE HCL 0.5 MG/ 0.5 ML SYRINGE IV PRN (10:50)
[2022-11-28] MEDS ORDERED: ONDANSETRON 4MG 2ML VIAL IV PRN (10:50)
[2022-11-28] MEDS ORDERED: oxyCODONE 5MG TAB PO PRN (10:50)
[2022-11-28] MEDS ORDERED: fentaNYL 100 MCG/2 ML INJECTION IV PRN (10:50)
[2022-11-28] MEDS ORDERED: fentaNYL 100 MCG/2 ML INJECTION As Ordered ONE (10:51)
[2022-11-28] MEDS ORDERED: NORCO, ANEXSIA 5/325MG TABLET (HYDROcodone/ACETAMINOPHEN) PO PRN (11:30)
[2022-11-28 12:55] VITALS: BP 146/83; TEMP 97; O2SAT 96
== END 2022-11-28 12:55 | disposition home or self-care (01) ==
LOC: M SDC 07:21
PROVIDERS: ATTEND Surgery
DX: K43.2 Incisional hernia without obstruction or gangrene (principal); K66.0 Peritoneal adhesions (postprocedural) (postinfection); I10 Essential (primary) hypertension; Z85.51 Personal history of malignant neoplasm of bladder; R00.2 Palpitations; Z79.899 Other long term (current) drug therapy; R06.83 Snoring; E78.00 Pure hypercholesterolemia, unspecified; Z87.19 Personal history of other diseases of the digestive system
CPT/HCPCS: 49591; C1781; J0131; J0665; J0690; J1100; J1885; J2250; J2371; J2405; J3010

== ENCOUNTER → 2024-02-02 | Outpatient (REF) | payer MEDICARE, MEDICAID ==
[~2024-02-02] MED LIST changes: -ceFAZolin SOD 2 GM in IV 1 EA IV ONE
[2024-02-02 18:19] LABS: HEMATOCRIT 45.7 % (42.0-52.0); HEMOGLOBIN 15.8 g/dl (13.5-17.5); MEAN CORPUSCULAR HEMOGLOBIN 29.8 pg (27.0-33.0); MEAN CORPUSCULAR HGB CONC 34.6 g/dl (32.0-36.5); MEAN CORPUSCULAR VOLUME 86.1 fl (80.0-96.0); PLATELET COUNT, AUTOMATED 238 10^3/uL (150-450); RED BLOOD COUNT 5.31 10^6/uL (4.30-6.10); WHITE BLOOD COUNT 13.3 10^3/uL (4.0-10.0)
[2024-02-02 18:29] LABS: HEMOGLOBIN A1c 5.7 % (4.0-6.0)
[2024-02-02 18:40] LABS: ALBUMIN 4.6 G/DL (3.2-5.2); ALKALINE PHOSPHATASE 58 U/L (40-129); ALT/SGPT 38 U/L (7.0-40); AST/SGOT 42 U/L (<34); BILIRUBIN,TOTAL 0.7 MG/DL (0.3-1.2); BLOOD UREA NITROGEN 20 MG/DL (9-23); CALCIUM LEVEL 10.1 MG/DL (8.3-10.6); CARBON DIOXIDE LEVEL 29 MMOL/L (20-31); CHLORIDE LEVEL 90 MMOL/L (98-107); CHOLESTEROL LEVEL 141 MG/DL (<200); CHOLESTEROL RISK RATIO 2.65 (<5); CREATININE FOR GFR 0.86 MG/DL (0.70-1.30); GLOMERULAR FILTRATION RATE > 60.0 (>49); GLUCOSE, FASTING 112 MG/DL (74-106); HDL CHOLESTEROL 53.2 MG/DL (>40); LDL CHOLESTEROL 64.8 MG/DL (<100); MAGNESIUM LEVEL 1.7 MG/DL (1.8-2.4); NON-HDL-C 87.8 MG/DL; POTASSIUM SERUM 4.4 MMOL/L (3.5-5.1); SODIUM LEVEL 128 MMOL/L (136-145); TOTAL PROTEIN 7.6 G/DL (5.7-8.2); TRIGLYCERIDES LEVEL 115 MG/DL (<150)
== END ==
LOC: M SFHCCLAY 10:46
PROVIDERS: ATTEND Family Medicine
DX: I10 Essential (primary) hypertension (principal); R73.01 Impaired fasting glucose; E78.2 Mixed hyperlipidemia; K21.9 Gastro-esophageal reflux disease without esophagitis

== ENCOUNTER → 2025-02-04 | Outpatient (REF) | payer MEDICARE, MEDICAID ==
[2025-02-04 17:55] LABS: ALT/SGPT 45 U/L (7.0-40); AST/SGOT 47 U/L (<34); CALCIUM LEVEL 10.1 MG/DL (8.3-10.6); CARBON DIOXIDE LEVEL 31 MMOL/L (20-31); CHLORIDE LEVEL 93 MMOL/L (98-107); CHOLESTEROL LEVEL 142 MG/DL (<200); CHOLESTEROL RISK RATIO 2.66 (<5); CREATININE FOR GFR 0.90 MG/DL (0.70-1.30); GLOMERULAR FILTRATION RATE > 90.0 (>49); LDL CHOLESTEROL 63.8 MG/DL (<100); MAGNESIUM LEVEL 1.7 MG/DL (1.8-2.4); NON-HDL-C 88.8 MG/DL; POTASSIUM SERUM 4.6 MMOL/L (3.5-5.1); SODIUM LEVEL 131 MMOL/L (136-145); TRIGLYCERIDES LEVEL 125 MG/DL (<150)
[2025-02-04 17:58] LABS: PLATELET COUNT, AUTOMATED 226 10^3/uL (150-450)
[2025-02-04 18:04] LABS: ESTIMATED AVERAGE GLUCOSE 120.0 MG/DL (60-110)
== END ==
LOC: M SFHCCLAY 11:19
PROVIDERS: ATTEND Family Medicine
DX: I10 Essential (primary) hypertension (principal); R73.01 Impaired fasting glucose; E78.2 Mixed hyperlipidemia; K21.9 Gastro-esophageal reflux disease without esophagitis